=== PATIENT | male | born 1955 | race Hispanic/Latino ===

== ENCOUNTER 2022-01-20 11:49 | Observation (INO) | payer MEDICARE ==
[~2022-01-20] VITALS: Ht 167.6 cm; Wt 86.2 kg
[2022-01-20 12:28] LABS: BASOPHILS % 0.2 % (0.0-1.0); EOSINOPHILS # (AUTO) 0.1 (0.0-0.4); EOSINOPHILS % 1.2 % (0.0-6.0); LYMPHOCYTES # (AUTO) 1.4 (1.0-3.2); LYMPHOCYTES % 32.7 % (18.0-39.1); MEAN CORPUSCULAR HEMOGLOBIN 31.4 pg (28-32); MEAN CORPUSCULAR HGB CONC 31.4 g/dL (31-35); MONOCYTES # (AUTO) 0.1 (0.2-0.8); MONOCYTES % 2.6 % (4.4-11.3); NEUTROPHILS # (AUTO) 2.7 (2.1-6.9); NEUTROPHILS % 62.8 % (38.7-80.0); PLATELET COUNT 174 x10e3/uL (140-360); RED BLOOD COUNT 1.94 x10e6/uL (4.3-5.7); RED CELL DISTRIBUTION WIDTH 16.3 % (11.7-14.4)
[2022-01-20 12:38] LABS: HEMATOCRIT 19.4 % (38.2-49.6); HEMOGLOBIN 6.1 g/dL (14.0-18.0)
[2022-01-20 12:48] LABS: INR 1.04; PROTHROMBIN TIME 14.5 seconds (11.9-14.5)
[2022-01-20 12:49] LABS: PARTIAL THROMBOPLASTIN TIME 30.4 seconds (23.8-35.5)
[2022-01-20 13:00] LABS: ALBUMIN 2.3 g/dL (3.5-5.0); ALBUMIN/GLOBULIN RATIO 0.2 (0.8-2.0); CALCIUM 8.1 mg/dL (8.4-10.2); CREATININE, SERUM 1.13 mg/dL (0.72-1.25); MAGNESIUM 1.4 MG/DL (1.3-2.1); POTASSIUM 4.1 mmol/L (3.5-5.1)
[2022-01-20 13:01] LABS: ANION GAP 5.1 mmol/L (8-16)
[2022-01-20 13:06] LABS: CREATINE KINASE MB 2.5 ng/mL (0-5.0)
[2022-01-20] MEDS ORDERED: DEXTROSE 50% SYRINGE 50 ML IV PRN (14:15)
[2022-01-20] MEDS ORDERED: Morphine 4mg INJECTION 4 MG/ML INJ IV PRN (14:15)
[2022-01-20] MEDS ORDERED: ONDANSETRON HCL INJ 2MG/ML 2ML 2 MG/ML VIAL IV PRN (14:15)
[2022-01-20 14:20] LABS: CLARITY,URINE CLEAR (CLEAR); COLOR,URINE YELLOW (YELLOW)
[2022-01-20 14:21] LABS: KETONES,URINE NEGATIVE (NEGATIVE); LEUKOCYTE ESTERASE ,URINE NEGATIVE (NEGATIVE); NITRITE,URINE NEGATIVE (NEGATIVE); PROTEIN,URINE DIPSTICK NEGATIVE (NEGATIVE); URINE UROBILINOGEN 0.2 mg/dL (0.2 - 1)
[2022-01-20 14:43] LABS: BACTERIA,URINE MODERATE /HPF; EPITHELIAL CELLS,URINE FEW /LPF; MUCUS,URINE MANY (RARE); RBC,URINE 0-5 /HPF (0-5); WBC,URINE (MAN) 0-5 /HPF (0-5)
[2022-01-20 16:15] VITALS: BP 141/70
[2022-01-20] MEDS: INSULIN LISPRO 100 UNIT/1 ML 3ML VIAL SQ SCH ×2 (16:30→20:47)
[2022-01-20] MEDS ORDERED: SODIUM CHLORIDE 0.9% 500ML 500 ML ONE (16:52)
[2022-01-20 17:24] VITALS: BP 141/70
[2022-01-20] MEDS ORDERED: METFORMIN HCL500 MG PO (19:39)
[2022-01-20] MEDS ORDERED: AMOXICILLIN500 MG PO (19:39)
[2022-01-20] MEDS ORDERED: ULTRAM50 MG PO (19:39)
[2022-01-20] MEDS ORDERED: TRAMADOL HCL 50 MG TAB PO PRN (19:45)
[2022-01-20 20:00] VITALS: BP 125/65
[2022-01-20 21:00] VITALS: BP 125/65
[2022-01-21] VITALS: BP 126/72
[2022-01-21] MEDS ORDERED: SODIUM CHLORIDE 0.9% 250ML 250 ML ONE (01:01)
[2022-01-21 04:00] VITALS: BP 120/78
[2022-01-21 06:31] LABS: EOSINOPHILS # (AUTO) 0.1 (0.0-0.4); EOSINOPHILS % 1.1 % (0.0-6.0); HEMATOCRIT 25.7 % (38.2-49.6); HEMOGLOBIN 8.3 g/dL (14.0-18.0); LYMPHOCYTES # (AUTO) 1.5 (1.0-3.2); LYMPHOCYTES % 34.5 % (18.0-39.1); MEAN CORPUSCULAR HEMOGLOBIN 31.8 pg (28-32); MEAN CORPUSCULAR HGB CONC 32.3 g/dL (31-35); MEAN CORPUSCULAR VOLUME 98.5 fL (81-99); MONOCYTES # (AUTO) 0.1 (0.2-0.8); MONOCYTES % 2.5 % (4.4-11.3); NEUTROPHILS # (AUTO) 2.7 (2.1-6.9); NEUTROPHILS % 61.7 % (38.7-80.0); PLATELET COUNT 186 x10e3/uL (140-360); RED BLOOD COUNT 2.61 x10e6/uL (4.3-5.7); RED CELL DISTRIBUTION WIDTH 16.6 % (11.7-14.4)
[2022-01-21 06:54] LABS: ALBUMIN 2.3 g/dL (3.5-5.0); ALBUMIN/GLOBULIN RATIO 0.2 (0.8-2.0); CALCIUM 8.1 mg/dL (8.4-10.2); CREATININE, SERUM 1.07 mg/dL (0.72-1.25)
[2022-01-21] MEDS: INSULIN LISPRO 100 UNIT/1 ML 3ML VIAL SQ SCH (07:30)
[2022-01-21 07:53] VITALS: BP 122/67
[2022-01-21 07:57] LABS: POTASSIUM 3.6 mmol/L (3.5-5.1)
[2022-01-21 07:58] VITALS: BP 122/67
[2022-01-21 07:58] LABS: ANION GAP 4.6 mmol/L (8-16)
== END 2022-01-21 11:27 | disposition home or self-care (01) ==
LOC: ER 12:01 → ERHOLD 14:09 → MED/SURG2 16:05
PROVIDERS: ADMIT Internal Medicine; ATTEND Internal Medicine
DX: C90.00 Multiple myeloma not having achieved remission (principal); I10 Essential (primary) hypertension; E78.5 Hyperlipidemia, unspecified; E11.9 Type 2 diabetes mellitus without complications; D63.0 Anemia in neoplastic disease; Z20.822 Contact with and (suspected) exposure to COVID-19
CPT/HCPCS: 36415 ×2; 71045; 80053 ×2; 81001; 82550; 82553; 82948 ×2; 83690; 83735; 84484; 85025 ×2; 85610; 85730; 86850; 86900; 86920; 87086; 93005; 99284; C9113 ×2; G0378 ×2; J7040; J7050; P9016 ×2; U0002

== ENCOUNTER 2022-02-01 11:50 | Emergency (ER) | payer MEDICARE ==
[~2022-02-01] VITALS: Ht 167.6 cm; Wt 86.2 kg
[~2022-02-01 11:50] MED LIST: AMOXICILLIN500 MG PO; METFORMIN HCL500 MG PO; ULTRAM50 MG PO
[2022-02-01] MEDS ORDERED: HYDROCODONE/APAP 5MG-325MG TAB PO ONE (13:15)
[2022-02-01] MEDS ORDERED: ASPIRIN 325 MG TAB PO ONE (13:15)
[2022-02-01] MEDS ORDERED: FENTANYL CITRATE/PF 100MCG/2 ML INJ IV ONE (13:15)
[2022-02-01 13:22] LABS: BASOPHILS % 0.4 % (0.0-1.0); EOSINOPHILS % 1.4 % (0.0-6.0); HEMATOCRIT 24.6 % (38.2-49.6); HEMOGLOBIN 7.6 g/dL (14.0-18.0); LYMPHOCYTES # (AUTO) 0.8 (1.0-3.2); LYMPHOCYTES % 28.4 % (18.0-39.1); MEAN CORPUSCULAR HEMOGLOBIN 30.9 pg (28-32); MEAN CORPUSCULAR HGB CONC 30.9 g/dL (31-35); MONOCYTES # (AUTO) 0.1 (0.2-0.8); MONOCYTES % 3.9 % (4.4-11.3); NEUTROPHILS # (AUTO) 1.9 (2.1-6.9); NEUTROPHILS % 65.5 % (38.7-80.0); PLATELET COUNT 123 x10e3/uL (140-360); RED BLOOD COUNT 2.46 x10e6/uL (4.3-5.7); RED CELL DISTRIBUTION WIDTH 16.8 % (11.7-14.4)
[2022-02-01 13:40] LABS: ALBUMIN 2.6 g/dL (3.5-5.0); ALBUMIN/GLOBULIN RATIO 0.3 (0.8-2.0); ANION GAP 6.9 mmol/L (8-16); CREATININE, SERUM 1.35 mg/dL (0.72-1.25); POTASSIUM 3.9 mmol/L (3.5-5.1)
[2022-02-01] MEDS ORDERED: REVLIMID25 MG PO (13:45)
[2022-02-01] MEDS ORDERED: DEXAMETHASONE4 MG PO (13:45)
[2022-02-01] MEDS ORDERED: FAMCICLOVIR250 MG PO (13:45)
[2022-02-01] MEDS ORDERED: TRADJENTA5 MG PO (13:46)
[2022-02-01] MEDS ORDERED: IOPAMIDOL 370 MG/ML 100 ML INFUS..BTL INJ ONE (14:04)
[2022-02-01 16:17] LABS: CLARITY,URINE CLEAR (CLEAR); COLOR,URINE YELLOW (YELLOW); KETONES,URINE NEGATIVE (NEGATIVE); LEUKOCYTE ESTERASE ,URINE NEGATIVE (NEGATIVE); NITRITE,URINE NEGATIVE (NEGATIVE); PROTEIN,URINE DIPSTICK NEGATIVE (NEGATIVE); URINE UROBILINOGEN 0.2 mg/dL (0.2 - 1)
[2022-02-01 16:25] LABS: BACTERIA,URINE FEW /HPF; EPITHELIAL CELLS,URINE FEW /LPF; RBC,URINE 0-5 /HPF (0-5); URIC ACID CRYSTALS,URINE MODERATE (FEW); WBC,URINE (MAN) 0-5 /HPF (0-5)
== END 2022-02-01 15:41 | disposition home or self-care (01) ==
LOC: ER 11:55
DX: C90.00 Multiple myeloma not having achieved remission (principal); M84.48XA Pathological fracture, other site, initial encounter for fracture; R07.9 Chest pain, unspecified; I10 Essential (primary) hypertension; E11.9 Type 2 diabetes mellitus without complications; Z79.84 Long term (current) use of oral hypoglycemic drugs; Z86.2 Personal history of diseases of the blood and blood-forming organs and certain disorders involving the immune mechanism
CPT/HCPCS: 36415; 71260; 80053; 81001; 83880; 84484; 85025; 93005; 99284; J3010; Q9967